=== PATIENT | female | born 1955 | race Caucasian/White ===

== ENCOUNTER 2017-10-10 15:21 | Emergency (ER) | payer OTHER ==
[2017-10-10 15:44] VITALS: BMI 26.4
[2017-10-10] MEDS ORDERED: Sodium Chloride 0.9% 500 ML IV ONE (15:46)
--- NOTE | 2017-10-10 15:50 | ED PDOC ---
Arrival/HPI - General Chief Complaint: Dizziness/Lightheaded Time Seen by Provider: 10/10/17 15:34 Historian: Patient, Family (Daughter translates) - History of Present Illness Time/Duration: Other (This morning) Symptom Onset: Gradual Symptom Course: Unchanged Severity Level: Moderate Activities at Onset: Rest Associated Symptoms (Text): 10/10/17 15:47 Patient woke up this morning with dizziness which is described as a spinning sensation along with nausea vomiting and headache. Never experienced this previously. No weakness. No numbness or tingling. No abdominal pain. No diarrhea. No head trauma. No neck pain. No fever or chills. He moved here from [place] approximately 2 months ago. History of diabetes on oral medication. She also has a complaint of chronic right lower back pain with radiation into her right lower extremity for several years. She also complains of a burning in her right breast for over one year. I discussed with the daughter that she should follow-up with her PMD for these chronic issues. We would address the acute problem of her dizziness today. Family/Social History - Physician Review Nursing Documentation Reviewed: Yes Family/Social History: Unknown Family HX Smoking Status: Never Smoked Hx Alcohol Use: No Hx Substance Use: No Allergies/Home Meds Allergies/Adverse Reactions: Allergies No Known Allergies Allergy (Unverified 10/10/17 15:44) Review of Systems - Physician Review All systems were reviewed & negative as marked: Yes - Review of Systems Constitutional: absent: Fatigue, Fevers Respiratory: absent: SOB, Cough, Wheezing Cardiovascular: absent: Chest Pain, Palpitations, Syncope Gastrointestinal: Nausea, Vomiting. absent: Abdominal Pain, Diarrhea Genitourinary Female: absent: Dysuria, Frequency, Hematuria Musculoskeletal: Back Pain. absent: Neck Pain Neurological: Headache, Dizziness. absent: Focal Weakness, Gait Changes, Speech Changes, Facial Droop, Disequilibrium, Seizure Physical Exam Vital Signs Temp Pulse Resp BP Pulse Ox 10/10/17 17:21 67 18 131/70 99 10/10/17 15:21 97.6 F 72 18 164/85 H 99 Temperature: Afebrile Blood Pressure: Hypertensive Pulse: Regular Respiratory Rate: Normal Appearance: Positive for: Well-Appearing, Non-Toxic, Comfortable Pain Distress: None Mental Status: Positive for: other (Awake alert cooperative and comfortable) - Systems Exam Head: Present: Atraumatic, Normocephalic Pupils: Present: PERRL Extroacular Muscles: Present: EOMI Conjunctiva: Present: Normal Ears: Present: NORMAL TM, Normal Canal. No: Erythema Mouth: Present: Moist Mucous Membranes Pharnyx: No: ERYTHEMA, EXUDATE, TONSILS ENLARGED Neck: Present: Normal Range of Motion Respiratory/Chest: Present: Clear to Auscultation, Good Air Exchange. No: Respiratory Distress, Accessory Muscle Use Cardiovascular: Present: Regular Rate and Rhythm, Normal S1, S2. No: Murmurs Abdomen: No: Tenderness, Distention, Peritoneal Signs, Rebound, Guarding Back: Present: Normal Inspection. No: CVA Tenderness, Midline Tenderness, Paraspinal Tenderness Upper Extremity: Present: Normal Inspection. No: Cyanosis, Edema Lower Extremity: Present: Normal Inspection. No: Edema Neurological: Present: GCS=15, CN II-XII Intact, Speech Normal, Motor Func Grossly Intact, Normal Cerebellar Funct, Gait Normal Skin: Present: Warm, Dry, Normal Color. No: Rashes Psychiatric: Present: Alert Medical Decision Making ED Course and Treatment: 10/10/17 16:00 EKG shows normal sinus rhythm rate approximately [address] or T-wave changes 10/10/17 17:39 Symptoms are markedly improved. Patient will be discharged home with her daughter to follow-up in the clinic. Prescriptions for Antivert and Zofran. 10/10/17 18:[address] without Contrast: Creator : Alvarez Chao MD IMPRESSION: No acute intracranial hemorrhage. - Lab Interpretations Lab Results: 10/10/17 16:10 10/10/17 16:10 Lab Results 10/10/17 16:10: Sodium 140, Potassium 4.2, Chloride 101, Carbon Dioxide 26, Anion Gap 17, BUN 13, Creatinine 0.6 L, Est GFR ( Amer) > 60, Est GFR ( Non-Af Amer) > 60, Random Glucose 166 H, Calcium 10.3, Magnesium 1.5 L, Total Bilirubin 0.5, AST 46 H, ALT 78 H, Alkaline Phosphatase 69, Lactate Dehydrogenase 475, Total Creatine Kinase 88, Troponin I < 0.01, Total Protein 7.6, Albumin 4.6, Globulin 3.0, Albumin/Globulin Ratio 1.5 10/10/17 16:10: WBC 5.9, RBC 4.26, Hgb 12.7, Hct 35.9 L, MCV 84.3, MCH 29.8, MCHC 35.4, RDW 13.0, Plt Count 230, MPV 10.2, Gran % 62.1, Lymph % (Auto) 31.6, [place] % (Auto) 5.1, Eos % (Auto) 0.7 L, Baso % (Auto) 0.5, Gran # 3.68, Lymph # ( Auto) 1.9, [place] # (Auto) 0.3, Eos # (Auto) 0.0, Baso # (Auto) 0.03 - RAD Interpretation Radiology Orders: 10/10/17 15:46 HEAD W/O CONTRAST [CT] Stat CT scan of the head as read by the radiologist shows no acute findings. Digital Asset Coordinator: Radiologist - Medication Orders Current Medication Orders: Discontinued Medications Sodium Chloride (Sodium Chloride 0.9%) 500 mls @ 500 mls/hr IV ONCE ONE Stop: 10/10/17 16:45 Last Admin: 10/10/17 16:10 Dose: 500 mls/hr eMAR Start Stop Document 10/10/17 16:10 EQ (Rec: 10/10/17 16:10 EQ [id number]) Intravenous Solution Start Date 10/10/17 Start Time 16:10 Meclizine HCl (Antivert) 25 mg PO ONCE ONE Stop: 10/10/17 15:47 Last Admin: 10/10/17 16:10 Dose: 25 mg Ondansetron HCl (Zofran Inj) 4 mg IVP ONCE ONE Stop: 10/10/17 15:47 Last Admin: 10/10/17 16:10 Dose: 4 mg IVP Administration Document 10/10/17 16:10 EQ (Rec: 10/10/17 16:10 EQ [id number]) Charges for Administration # of IVP Administrations 1 Disposition/Present on Arrival - Present on Arrival Any Indicators Present on Arrival: No History of DVT/PE: No History of Uncontrolled Diabetes: Yes Urinary Catheter: No History of Decub. Ulcer: No - Disposition Have Diagnosis and Disposition been Completed?: Yes Diagnosis: Vertigo Disposition: HOME/ ROUTINE Disposition Time: 17:39 Patient Plan: Discharge Patient Problems: Current Active Problems Problem Status Onset Vertigo Acute Condition: IMPROVED Discharge Instructions (ExitCare): Vertigo (a Type of Dizziness) Prescriptions: Meclizine [Meclizine*] 25 mg PO Q6 #20 tab Ondansetron [Zofran Odt] 4 mg SL Q6 #20 odt Referrals: PCP,NO [Primary Care Provider] - [place] up [place] [facility] [place] - Follow up with primary Forms: [employer] (Citizen [place])
[2017-10-10 15:51] VITALS: RESP 18; TEMP 97.6; O2SAT 99
[2017-10-10 16:33] LABS: BASO # 0.03 K/mm3 (0.0-2.0); BASO % 0.5 % (0.0-3.0); EOS % 0.7 % (1.5-5.0); GRAN # 3.68 (1.4-6.5); GRAN % 62.1 % (50.0-68.0); HEMOGLOBIN 12.7 g/dL (12.0-16.0); LYMPH # 1.9 (1.2-3.4); LYMPH % 31.6 % (22.0-35.0); MEAN CELL VOLUME 84.3 fl (80.0-105.0); MEAN CORPUSCULAR HEMOGLOBIN 29.8 pg (25.0-35.0); MEAN CORPUSCULAR HGB CONC 35.4 g/dl (31.0-37.0); MEAN PLATELET VOLUME 10.2 fl (7.0-11.0); MONO # 0.3 (0.1-0.6); MONO % 5.1 % (1.0-6.0); RBC 4.26 10^6/uL (3.5-6.1); WHITE BLOOD COUNT 5.9 10^3/ul (4.5-11.0)
[2017-10-10 16:45] LABS: ALB/GLOB RATIO 1.5 (1.1-1.8); ALBUMIN 4.6 g/dL (3.0-4.8); ALT/SGPT 78 U/L (7-56); AST/SGOT 46 U/L (14-36); BLOOD UREA NITROGEN 13 mg/dL (7-21); CALCIUM 10.3 mg/dL (8.4-10.5); GFR AFRICAN-AMERICAN > 60; GFR NON-AFRICAN AMERICAN > 60
[2017-10-10 16:56] LABS: TROPONIN I < 0.01 ng/mL
--- NOTE | 2017-10-10 17:34 | CT ---
PROCEDURE: CT HEAD WITHOUT CONTRAST. HISTORY: dizzy COMPARISON: None available. TECHNIQUE: Axial computed tomography images were obtained through the head/brain without intravenous contrast. Radiation dose: Total exam DLP = 1054.12 mGy-cm. This CT exam was performed using one or more of the following dose reduction techniques: Automated exposure control, adjustment of the mA and/or kV according to patient size, and/or use of iterative reconstruction technique. FINDINGS: HEMORRHAGE: No acute parenchymal, subarachnoid or extra-axial hemorrhage. BRAIN: No evidence of large acute infarct. Note however the possibility of a tiny hyperacute infarct cannot be completely excluded on this study and if there is any concern, consider followup MRI the brain No obvious parenchymal nor extra-axial mass or collection seen on this noncontrast study. The ventricular and sulcal size are within range of normal for this patient's stated age. VENTRICLES: No obstructive hydrocephalus. CALVARIUM: Calvarium intact PARANASAL SINUSES: Frontal sinuses are hypoplastic. Remaining visualized paranasal sinuses are relatively well-developed. No fluid levels seen to suggest acute sinusitis. Minimal mucosal thickening within the ethmoid air complex. Calvarium intact. Note made of a leftward deviation of the nasal septum. In addition, the nasal mucosa is somewhat atrophic and crenulated appearance MASTOID AIR CELLS: Unremarkable as visualized. No inflammatory changes. OTHER FINDINGS: None. IMPRESSION: No acute intracranial hemorrhage.
[2017-10-10 17:59] VITALS: BP 131/70; PULSE 67
--- NOTE | 2017-10-10 19:19 | CARD ---
APPROVED REPORT EKG Measurement Heart [id number] <Conclusion> Normal sinus rhythm Normal ECG
== END 2017-10-10 19:54 | disposition home or self-care (01) ==
LOC: ED 15:21
DX: R42 Dizziness and giddiness (principal); E11.9 Type 2 diabetes mellitus without complications
CPT/HCPCS: 70450; 80053; 82550; 83615; 83735; 84484; 85025; 93005; 96374; 99285; J2405; J7040

== ENCOUNTER 2018-10-02 10:56 | Outpatient (CLI) | payer OTHER | END 2018-10-02 10:57 | disposition home or self-care (01) | LOC: LAB 10:56 ==

== ENCOUNTER 2018-10-25 11:22 | Outpatient (CLI) | payer OTHER | END 2018-10-25 11:23 | disposition home or self-care (01) | LOC: LAB 11:22 ==

== ENCOUNTER 2018-10-30 08:56 | Outpatient (CLI) | payer OTHER | END 2018-10-30 08:57 | disposition home or self-care (01) | LOC: RAD 08:56 | DX: R74.0 Nonspecific elevation of levels of transaminase and lactic acid dehydrogenase [LDH] (principal) ==